=== PATIENT | female | born 1935 | race Hispanic/Latino ===

== ENCOUNTER 2016-11-08 10:51 | Emergency (ER) | payer MEDICARE ==
[2016-11-08 11:49] LABS: Basophils % (Auto) 0.5 % (0.0-1.8); Eosinophils % (Auto) 1.1 % (0.0-4.3); Mean Corpuscular HGB Conc 31 % (30-34); Mean Corpuscular Volume 78 fl (79-97); Platelet Count 230 K/mm3 (140-440); Red Blood Count 5.17 M/mm3 (3.65-5.03); Red Cell Distribution Width 19.5 % (13.2-15.2); White Blood Count 9.5 K/mm3 (4.5-11.0)
[2016-11-08 11:50] LABS: Hematocrit 40.5 % (30.3-42.9); Hemoglobin 12.5 gm/dl (10.1-14.3); Mean Corpuscular Hemoglobin 24 pg (28-32)
[2016-11-08 12:12] LABS: BUN/Creatinine Ratio 18.88; Calcium 9.6 mg/dL (8.4-10.2); Chloride 99.4 mmol/L (98-107); Potassium 4.8 mmol/L (3.6-5.0)
--- NOTE | 2016-11-08 12:23 | XRay Report ---
X-ray SOFT TISSUE NECK TWO VIEWS: 11/08/16 10:51:00 CLINICAL: Possible obstructing food bolus. FINDINGS: Normal airway and soft tissues. No foreign body identified. Status post anterior cervical fusion C5-C7. Normal appearance of the hardware. Large anterior osteophytes at C3-4 and C4-5. C4-5 disc space narrowing. The anterior osteophyte at C3-4 is sufficiently large to possibly impaired swallowing. IMPRESSION: No foreign body. Extensive degenerative change of the cervical spine status post anterior cervical fusion with anterior osteophytes at C3-4 which are sufficiently large to possibly impair swallowing.
[2016-11-08] MEDS ORDERED: ZOFRAN IV ONE (15:32)
--- NOTE | 2016-11-08 15:41 | Emergency Department Report ---
HPI - General Chief Complaint: Chest Pain Time Seen by Provider: 11/08/16 15:16 - HPI HPI: Room 18 The patient is an 81-year-old female presenting with a chief complaint of chest discomfort, inability to swallow food. The patient says she has had difficulty swallowing for 2 weeks. The patient states last night she ate pizza without difficulty however this morning when she attempted to drink coffee came right back up. The patient says she attempts to eat some chicken tenders but that also came back up. Patient states she is unable to tolerate anything by mouth. The patient complains of discomfort in the middle of the chest and states it feels similar to an episode she had 2 years ago when she required an EGD with dilation of her esophagus Location: Chest, gastrointestinal system Duration: Intermittent 2 weeks, see above Quality: Discomfort Severity: Moderate Modifying factors: [see above] Context: [see above] Mode of transportation: [not driving] ED Past Medical Hx - Past Medical History Hx Hypertension: Yes Hx Diabetes: Yes Hx GERD: Yes Hx Arthritis: Yes Hx Asthma: Yes Additional medical history: Degenerative joint disease , thyroid - Surgical History Additional Surgical History: ольга knee replacement/ left shoulder replacement. neck surgery. Partial hyster, , cataract, thyroid - Family History Family history: no significant - Social History Smoking Status: Never Smoker Substance Use Type: None - Medications Home Medications: Home Medications Medication Instructions Recorded Confirmed Last Taken Type Losartan/Hydrochlorothiazide 1 each PO QDAY 10/17/12 07/13/15 1 Day Ago History [Hyzaar 100-25] 1 Pravastatin (Nf) [Pravachol] 40 mg PO QHS 10/17/12 07/13/15 1 Day Ago History 4 metFORMIN [Glucophage] 500 mg PO BID 10/17/12 07/13/15 1 Day Ago History 40 Insulin NPH Hum/Reg Insulin Hm 45 units SC BID 03/07/14 07/13/15 1 Day Ago History [NovoLIN 70-30 100 Unit/ml Vial] 45 Levothyroxine [Synthroid] 50 mcg PO DAILY 03/07/14 07/13/15 1 Day Ago History 50 Carvedilol [Coreg] 6.25 mg PO BID 11/08/16 11/08/16 Unknown History Pantoprazole [Protonix] 40 mg PO QDAY #30 tablet 11/08/16 Unknown Rx ED Review of Systems ROS: Stated complaint: CHEST PAIN Other details as noted in HPI Comment: All other systems reviewed and negative Constitutional: denies: chills, fever Eyes: denies: eye pain, eye discharge, vision change ENT: denies: ear pain, throat pain Respiratory: denies: cough, shortness of breath, wheezing Cardiovascular: chest pain Endocrine: no symptoms reported Gastrointestinal: nausea, vomiting Genitourinary: denies: urgency, dysuria, discharge Musculoskeletal: denies: back pain, joint swelling, arthralgia Skin: denies: rash, lesions Neurological: denies: headache, weakness, paresthesias Psychiatric: denies: anxiety, depression Hematological/Lymphatic: denies: easy bleeding, easy bruising Physical Exam - Physical Exam Vital Signs: Vital Signs 11/08/16 11/08/16 11/08/16 11:21 14:23 14:30 Temperature 98.4 F Pulse Rate 86 63 70 Respiratory 20 19 12 Rate Blood Pressure 196/82 203/69 O2 Sat by Pulse 96 98 97 Oximetry 11/08/16 14:47 Temperature Pulse Rate Respiratory 16 Rate Blood Pressure O2 Sat by Pulse 98 Oximetry Physical Exam: GENERAL: The patient is well-developed well-nourished female sitting on stretcher holding an emesis bag not appearing to be in acute distress. [] HEENT: Normocephalic. Atraumatic. Extraocular motions are intact. Patient has moist mucous membranes. NECK: Supple. Trachea midline. There is no stridor CHEST/LUNGS: Clear to auscultation. There is no respiratory distress noted. HEART/CARDIOVASCULAR: Regular. There is no tachycardia. There is no gallop rub or murmur. ABDOMEN: Abdomen is soft, nontender. Patient has normal bowel sounds. There is no abdominal distention. SKIN: There is no rash. There is no diaphoresis. NEURO: The patient is awake, alert, and oriented. The patient is cooperative. The patient has normal speech MUSCULOSKELETAL: There is no evidence of acute injury. ED Course Vital Signs 11/08/16 11/08/16 11/08/16 11:21 14:23 14:30 Temperature 98.4 F Pulse Rate 86 63 70 Respiratory 20 19 12 Rate Blood Pressure 196/82 203/69 O2 Sat by Pulse 96 98 97 Oximetry 11/08/16 14:47 Temperature Pulse Rate Respiratory 16 Rate Blood Pressure O2 Sat by Pulse 98 Oximetry - Consultations Consultation #1: 11/08/16 15:[address] Hassan-recommends canceling esophagram and he will call [facility] for endoscopy ED Medical Decision Making - Lab Data Result diagrams: 11/08/16 11:35 11/08/16 11:35 Laboratory Tests 11/08/16 11/08/16 11/08/16 11:35 11:35 15:30 WBC 9.5 RBC 5.17 H Hgb 12.5 Hct 40.5 MCV 78 L MCH 24 L MCHC 31 RDW 19.5 H Plt Count 230 Lymph % (Auto) 29.8 [place] % (Auto) 4.9 Eos % (Auto) 1.1 Baso % (Auto) 0.5 Lymph # 2.8 [place] # 0.5 Eos # 0.1 Baso # 0.0 Seg Neutrophils % 63.7 Seg Neutrophils # 6.1 Sodium 137 Potassium 4.8 Chloride 99.4 Carbon Dioxide 23 Anion Gap 19 BUN 17 Creatinine 0.9 Estimated GFR 60 BUN/Creatinine Ratio 18.88 Glucose 224 H Calcium 9.6 Total Creatine Kinase 41 CK-MB (CK-2) 1.7 CK-MB (CK-2) Rel Index 4.1 H Troponin T < 0.010 - EKG Data -: EKG Interpreted by Me EKG shows normal: sinus rhythm Rate: normal - EKG Data When compared to previous EKG there are: no significant change Interpretation: unchanged when compared t (04/14/2014) - Radiology Data Radiology results: image reviewed (lateral soft tissue neck x-ray) interpreted by me: Lateral soft tissue neck x-ray-no prevertebral swelling, no foreign body seen - Differential Diagnosis food impaction, esophageal stricture, achalasia, esophageal web, ACS Critical care attestation.: If time is entered above; I have spent that time in minutes in the direct care of this critically ill patient, excluding procedure time. ED Disposition Clinical Impression: Dysphagia, Esophagitis determined by endoscopy Disposition: DC-01 TO HOME OR SELFCARE Is pt being admited?: No Does the pt Need Aspirin: No Condition: Stable Additional Instructions: Return to the emergency department immediately should you develop worsening symptoms, fever, inability to tolerate food or liquid or any other concerns. Prescriptions: Pantoprazole [Protonix] 40 mg PO QDAY #30 tablet Referrals: BOO PURCELL MD [Primary Care Provider] - 3-5 Days EDY HASSAN MD [Staff Physician] - 3-5 Days
[2016-11-08 15:48] LABS: Creatine Kinase MB 1.7 ng/mL (0.0-4.0)
[2016-11-08 15:49] LABS: Creatine Kinase 41 units/L (30-135)
[2016-11-08] MEDS ORDERED: NACL 0.9% 1000 ML 1,000 ML ONE (17:21)
[2016-11-08] MEDS ORDERED: WATER FOR IRRIG STERILE IR ONE (17:21)
--- NOTE | 2016-11-08 17:45 | Gastroenterology Consultation ---
History of Present Illness - Reason for Consult Consult date: 11/08/16 esophageal food impaction Requesting physician: FARSHAD GUTIÉRREZ - History of Present Illness The patient is an 81 year old female for whom consultation was requested for esophageal food impaction. She had been having mild dysphagia for a few weeks and became unable to swallow anything, including saliva after eating a meat particle. She has had heartburn for a few weeks as well. The patient denies weight loss or loss of appetite. Past History Past Medical History: arthritis, diabetes, hypertension Past Surgical History: total hip replacement, total knee replacement Social history: , lives with family. denies: smoking, alcohol abuse Family history: no significant family history Medications and Allergies Allergies Allergy/AdvReac Type Severity Reaction Status Date / Time Opioids - Morphine Analogues Allergy Vomiting Verified 07/13/15 16:35 tetanus immune globulin Allergy Rash Verified 07/13/15 16:35 tape Allergy Unknown Uncoded 07/13/15 16:35 Home Medications Medication Instructions Recorded Confirmed Last Taken Type Losartan/Hydrochlorothiazide 1 each PO QDAY 10/17/12 11/08/16 1 Day Ago History [Hyzaar 100-25] 1 Pravastatin (Nf) [Pravachol] 40 mg PO QHS 10/17/12 11/08/16 1 Day Ago History 4 metFORMIN [Glucophage] 1,000 mg PO BID 10/17/12 11/08/16 1 Day Ago History 40 Insulin NPH Hum/Reg Insulin Hm 45 units SC BID 03/07/14 11/08/16 1 Day Ago History [NovoLIN 70-30 100 Unit/ml Vial] 45 Levothyroxine [Synthroid] 50 mcg PO DAILY 03/07/14 11/08/16 1 Day Ago History 50 Carvedilol [Coreg] 6.25 mg PO BID 11/08/16 11/08/16 Unknown History Review of Systems - Review of Systems Constitutional: no weight loss, no weight gain Eyes: no change in vision, no pain Ears, Nose, Throat: difficulty swallowing, no decreased hearing, no epistaxis, no painful swallowing Breasts: deferred Cardiovascular: no chest pain, no shortness of breath, no syncope Respiratory: no cough, no shortness of breath, no wheezing Gastrointestinal: no abdominal pain, no nausea, no vomiting, no diarrhea, no change in bowel habits, no BRBPR, no melena Rectal: no pain Female Genitourinary: deferred Musculoskeletal: joint pain, no gait dysfunction Integumentary: no rash, no pruritis, no jaundice Neurological: no paralysis, no weakness, no parasthesias Psychiatric: no anxiety, no memory loss, no change in sleep habits, no change in appetite Endocrine: no cold intolerance, no heat intolerance Hematologic/Lymphatic: no easy bruising, no easy bleeding Allergic/Immunologic: no wheezing Exam - Constitutional Vital Signs: Temp Pulse Resp BP Pulse Ox 98.4 F 71 12 212/58 96 11/08/16 11:21 11/08/16 17:00 11/08/16 17:00 11/08/16 17:00 11/08/16 17:00 General appearance: no acute distress, well-nourished - EENT Eyes: PERRL ENT: hearing intact, clear oral mucosa, dentition normal - Neck Neck: supple, normal ROM, no masses or JVD - Respiratory Respiratory effort: normal Respiratory: bilateral: CTA - Breasts Breasts: deferred - Cardiovascular Rhythm: regular Heart Sounds: Present: S1 & S2. Absent: gallop, rub Extremities: pulses intact, No edema, normal color, Full ROM - Gastrointestinal General gastrointestinal: Present: soft, non-tender, non-distended, normal bowel sounds, other (umbilical hernia) Rectal Exam: deferred - Genitourinary Female Genitourinary: deferred - Integumentary Integumentary: Present: clear, warm, dry - Neurologic Neurological: alert and oriented x3 - Psychiatric Psychiatric: appropriate mood/affect, intact judgment & insight, memory intact - Labs CBC & Chem 7: 11/08/16 11:35 11/08/16 11:35 Lab Results: Laboratory Results - last 24 hr 11/08/16 11/08/16 11/08/16 11:35 11:35 15:30 WBC 9.5 RBC 5.17 H Hgb 12.5 Hct 40.5 MCV 78 L MCH 24 L MCHC 31 RDW 19.5 H Plt Count 230 Lymph % (Auto) 29.8 [place] % (Auto) 4.9 Eos % (Auto) 1.1 Baso % (Auto) 0.5 Lymph # 2.8 [place]p # 0.5 Eos # 0.1 Baso # 0.0 Seg Neutrophils % 63.7 Seg Neutrophils # 6.1 Sodium 137 Potassium 4.8 Chloride 99.4 Carbon Dioxide 23 Anion Gap 19 BUN 17 Creatinine 0.9 Estimated GFR 60 BUN/Creatinine Ratio 18.88 Glucose 224 H Calcium 9.6 Total Creatine Kinase 41 CK-MB (CK-2) 1.7 CK-MB (CK-2) Rel Index 4.1 H Troponin T < 0.010 Assessment and Plan - Patient Problems (1) Foreign body in esophagus Current Visit: Yes Status: Acute Qualifiers: Encounter type: E Plan to address problem: Will plan urgent endoscopy for removal of meat impaction. Details of endoscopy , purpose, risks, benefits and alternatives were discussed. Patient is in agreement. (2) Dysphagia Current Visit: Yes Status: Acute Qualifiers: Dysphagia type: D
[2016-11-08] MEDS ORDERED: DIPRIVAN 10 MG/ML IV ONE (17:51)
--- NOTE | 2016-11-08 17:55 | Anesthesia Day of Surgery ---
Anesthesia Day of Surgery - Day of Surgery Patient Examined: Yes Patient H&P Reviewed: Yes Patient is NPO: Yes Beta Blockers: No (unable to swallow pills)
--- NOTE | 2016-11-08 17:55 | Anesthesia Consultation ---
Anesthesia Consult and Med Hx Date of service: 11/08/16 - Airway Anesthetic Teeth Evaluation: Good ROM Head & Neck: Adequate Mental/Hyoid Distance: Adequate Mallampati Class: Class II Intubation Access Assessment: Probably Good - Pulmonary Exam CTA: Yes - Cardiac Exam Cardiac Exam: RRR - Pre-Operative Health Status ASA Pre-Surgery Classification: ASA3, Emergency Proposed Anesthetic Plan: MAC - Pulmonary Hx Smoking: No Hx Asthma: Yes COPD: No Hx Sleep Apnea: No - Cardiovascular System Hx Hypertension: Yes Hx Coronary Artery Disease: No (EF > 60%, negative stress in 10/2012) - Central Nervous System Hx Back Pain: Yes (neck pain, prior neck surgery) Hx Psychiatric Problems: No - Gastrointestinal Hx Gastroesophageal Reflux Disease: Yes - Endocrine Hx Insulin Dependent Diabetes: Yes Hx Thyroid Disease: Yes Hx Hypothyroidism: Yes - Hematic Hx Anemia: No - Other Systems Hx Cancer: No Hx Obesity: Yes
[2016-11-08] MEDS ORDERED: NORMODYNE IV PRN (17:57)
[2016-11-08] MEDS ORDERED: XYLOCAINE MPF 2% ONE (18:09)
--- NOTE | 2016-11-08 18:10 | Operative Report ---
Operative Report Operative Report: Date of procedure: 11/08/2016 Procedure: Esophagogastroduodenoscopy Preprocedure diagnosis: Food impaction Post procedure diagnosis: Severe distal esophagitis with resolved food impaction Endoscopist: Dr. Kilgore Anesthesia: Monitored anesthesia care per anesthesia department Medications: Propofol per anesthesia Estimated blood loss: 0 After careful discussion of the nature and purpose of the procedure as well as details the technique risks benefits and alternatives consent was obtained. The patient was placed in the left lateral decubitus position and medicated per anesthesia. The tip of the [employer] EQ 570 video scope was passed per orum under direct vision into the esophagus and advanced into the stomach and descending duodenum. There were a few flecks of old food present in the distal esophagus consistent with passage of a recent food bolus. The descending duodenum the duodenal bulb and pylorus were symmetrical and normal. The scope was withdrawn into the stomach and the stomach then gently insufflated with air. The antrum was normal. The stomach was further insufflated and the scope was then retroflexed and partially withdrawn. The cardia, fundus, and body of the stomach were within normal limits and easily distensible.The scope was then withdrawn in the forward position. The esophagogastric junction was at 38 cm. Severe inflammation and moderate ulceration was present in the distal 3 cm of the esophagus. The proximal esophageal body was normal. The procedure was was well tolerated and the patient was observed in recovery. Impressions: Distal esophagitis with resolution of food bolus impaction spontaneously. Likely has mild underlying stricture. Plan: Begin PPI therapy. Outpatient follow-up and endoscopy for dilation in the next month. The patient may be safely discharged from the emergency room. Electronically signed: Marco Antonio Kilgore MD
--- NOTE | 2016-11-08 18:41 | Post Anesthesia Evaluation ---
- Post Anesthesia Evaluation Patient Participated: Yes Airway Patent: Yes Stable Respiratory Function: Yes Nausea/Vomiting: No Temp > 96.8F: Yes Pain Manageable: Yes Adequeate Hydration: Yes Anesthesia Complications: No Block Receding Appropriately: Not Applicable Patient on Ventilator: No
[2016-11-08 19:30] VITALS: BP 172/78
== END 2016-11-08 19:06 | disposition home or self-care (01) ==
LOC: ED 10:51
DX: R07.89 Other chest pain (principal); R13.10 Dysphagia, unspecified; K20.9 Esophagitis, unspecified; I10 Essential (primary) hypertension; E11.9 Type 2 diabetes mellitus without complications; K21.9 Gastro-esophageal reflux disease without esophagitis; M19.90 Unspecified osteoarthritis, unspecified site; J45.909 Unspecified asthma, uncomplicated; Z79.4 Long term (current) use of insulin
CPT/HCPCS: 36415; 43237; 70360; 80048; 82550; 82553; 82962; 84484; 85025; 93005; 93010; 99284; J2704; J7030

== ENCOUNTER 2016-11-10 10:07 | Emergency (ER) | payer MEDICARE ==
--- NOTE | 2016-11-10 11:03 | Emergency Department Report ---
Chief Complaint: Medical Clearance Stated Complaint: FOOD WILL NOT GO DOWN Time Seen by Provider: 11/10/16 10:40 - HPI History of Present Illness: Patient here before that she is having an problem with swallowing her food. She states she was here recently and she just came from her doctor's office who called Dr. Kilgore office and Dr. Kilgore inform her to go to the emergency room and he will call and let them know that she is on away. Patient has history of arthritis, asthma, diabetes, GERD and hypertension. She has degenerative joint disease and thyroid disease. She has a history of bilateral knee replacement left shoulder replacement, neck surgery, partial hysterectomy, cataracts and thyroid surgery. Patient says she is recently had an EGD done and they found that she has spasms it was done by Dr. Kilgore and they could not complete the procedure because they're afraid that she would have a tear in her esophagus postprocedure. She is a diabetic and she is on metformin and fill her last blood sugar was at 150. She says she is having generalized pain 8 out of 10. Denies any chest pain or shortness of breath. - ROS Review of Systems: All systems are negative unless stated in HPI above - Exam Vital Signs: Vital Signs 11/10/16 10:39 Temperature 98 F Pulse Rate 82 Respiratory 20 Rate Blood Pressure 0/0 O2 Sat by Pulse 100 Oximetry There is aware that patient needs blood pressure taken Physical Exam: Gen.: This is a 81-year-old female well-nourished well-developed in no acute distress. Mouth: Oral airways patent, uvula is midline and no peritonsillar abscess or pharyngeal abnormality. Abdomen: Soft, nontender to palpate in all quadrants: Normal bowel sounds in all quadrants. MSE screening note: Focused history and physical exam performed. Due to findings the following was ordered:[facility] [place] ED Medical Decision Making - Medical Decision Making MDM: Patient screened by provider in triage area. Appropriate protocol initiated and patient to be seen in main ED by provider. I informed nurse in main ED the patient is in acute waiting area and Dr. Kilgore is supposed to be contact in for further details. ED Disposition for [facility] [place] Condition: Stable
[2016-11-10 12:27] LABS: Basophils % (Auto) 0.3 % (0.0-1.8); Eosinophils % (Auto) 1.6 % (0.0-4.3); Hematocrit 39.7 % (30.3-42.9); Hemoglobin 12.3 gm/dl (10.1-14.3); Mean Corpuscular HGB Conc 31 % (30-34); Mean Corpuscular Volume 77 fl (79-97); Platelet Count 217 K/mm3 (140-440); Red Blood Count 5.13 M/mm3 (3.65-5.03); Red Cell Distribution Width 18.7 % (13.2-15.2); White Blood Count 8.4 K/mm3 (4.5-11.0)
[2016-11-10 12:29] LABS: Alanine Aminotransferase 17 units/L (7-56); Albumin 3.6 g/dL (3.9-5); Albumin/Globulin Ratio 1.1 %; Alkaline Phosphatase 72 units/L (35-129); Anion Gap 17 mmol/L; BUN/Creatinine Ratio 19; Blood Urea Nitrogen 15 mg/dL (7-17); Calcium 9.7 mg/dL (8.4-10.2); Carbon Dioxide 25 mmol/L (22-30); Chloride 104.3 mmol/L (98-107); Glucose 135 mg/dL (65-100); Potassium 4.7 mmol/L (3.6-5.0); Sodium 142 mmol/L (137-145); Total Protein 6.9 g/dL (6.3-8.2)
[2016-11-10 12:38] LABS: INR 1.01 (0.87-1.13)
[2016-11-10 12:39] LABS: Partial Thromboplastin Time 28.6 Sec. (24.2-36.6)
[2016-11-10 12:40] LABS: Mean Corpuscular Hemoglobin 24 pg (28-32)
[2016-11-10 12:50] VITALS: BP 174/82
--- NOTE | 2016-11-10 12:56 | Emergency Department Report ---
ED General Adult HPI - General Chief complaint: Medical Clearance Stated complaint: FOOD WILL NOT GO DOWN Time Seen by Provider: 11/10/16 10:55 Source: patient, RN notes reviewed, old records reviewed Mode of arrival: Ambulatory Limitations: No Limitations - History of Present Illness Initial comments: This is an 81-year-old female who was previously unknown to this provider. Has a past medical history of severe esophagitis, with resolved food impaction boluses. Also has past medical history of hypertension, high cholesterol, diabetes. The patient presents to the ER with a sensation of recurrent inability to swallow. This started this morning. It is constant. It hurts her to swallow. No other complaints at this time. She reports this feels identical to her prior presentation on 11/08/2016. At that time, she had an upper endoscopy, which demonstrated "distal esophagitis with resolution of food bolus impaction spontaneously. Likely has underlying stricture." Gastroenterology recommended empiric proton pump inhibitor therapy, outpatient follow-up and endoscopy for dilatation in the next month. -: Gradual Consistency: constant Improves with: rest Worsens with: eating Associated Symptoms: loss of appetite, malaise. denies: confusion, cough, diaphoresis, fever/chills, headaches, rash, seizure, shortness of breath, syncope, weakness - Related Data Home Medications Medication Instructions Recorded Confirmed Last Taken Losartan/Hydrochlorothiazide 1 each PO QDAY 10/17/12 11/08/16 1 Day Ago [Hyzaar 100-25] 1 Pravastatin (Nf) [Pravachol] 40 mg PO QHS 10/17/12 11/08/16 1 Day Ago 4 metFORMIN [Glucophage] 1,000 mg PO BID 10/17/12 11/08/16 1 Day Ago 40 Insulin NPH Hum/Reg Insulin Hm 45 units SC BID 03/07/14 11/08/16 1 Day Ago [NovoLIN 70-30 100 Unit/ml Vial] 45 Levothyroxine [Synthroid] 50 mcg PO DAILY 03/07/14 11/08/16 1 Day Ago 50 Carvedilol [Coreg] 6.25 mg PO BID 11/08/16 11/08/16 Unknown Previous Rx's Medication Instructions Recorded Last Taken Type Pantoprazole [Protonix] 40 mg PO QDAY #30 tablet 11/08/16 Unknown Rx Ondansetron [Zofran Odt] 4 mg PO Q6HR PRN #20 tab.rapdis 11/10/16 Unknown Rx Allergies Allergy/AdvReac Type Severity Reaction Status Date / Time Opioids - Morphine Analogues Allergy Vomiting Verified 07/13/15 16:35 tetanus immune globulin Allergy Rash Verified 07/13/15 16:35 tape Allergy Unknown Uncoded 07/13/15 16:35 ED Review of Systems ROS: Stated complaint: FOOD WILL NOT GO DOWN Other details as noted in HPI Constitutional: denies: fever Eyes: denies: eye discharge ENT: denies: epistaxis Respiratory: denies: cough Cardiovascular: denies: chest pain Gastrointestinal: as per HPI Genitourinary: as per HPI Musculoskeletal: as per HPI Skin: as per HPI Neurological: as per HPI Psychiatric: as per HPI Hematological/Lymphatic: as per HPI ED Past Medical Hx - Past Medical History Hx Hypertension: Yes Hx Diabetes: Yes Hx GERD: Yes Hx Arthritis: Yes Hx Asthma: Yes Hx COPD: No Hx Tuberculosis: No Hx HIV: No Additional medical history: Degenerative joint disease , thyroid - Surgical History Additional Surgical History: ольга knee replacement/ left shoulder replacement. neck surgery. Partial hyster, , cataract, thyroid - Social History Smoking Status: Never Smoker Substance Use Type: None - Medications Home Medications: Home Medications Medication Instructions Recorded Confirmed Last Taken Type Losartan/Hydrochlorothiazide 1 each PO QDAY 10/17/12 11/08/16 1 Day Ago History [Hyzaar 100-25] 1 Pravastatin (Nf) [Pravachol] 40 mg PO QHS 10/17/12 11/08/16 1 Day Ago History 4 metFORMIN [Glucophage] 1,000 mg PO BID 10/17/12 11/08/16 1 Day Ago History 40 Insulin NPH Hum/Reg Insulin Hm 45 units SC BID 03/07/14 11/08/16 1 Day Ago History [NovoLIN 70-30 100 Unit/ml Vial] 45 Levothyroxine [Synthroid] 50 mcg PO DAILY 03/07/14 11/08/16 1 Day Ago History 50 Carvedilol [Coreg] 6.25 mg PO BID 11/08/16 11/08/16 Unknown History Pantoprazole [Protonix] 40 mg PO QDAY #30 tablet 11/08/16 Unknown Rx Ondansetron [Zofran Odt] 4 mg PO Q6HR PRN #20 tab.rapdis 11/10/16 Unknown Rx ED Physical Exam - General Limitations: No Limitations General appearance: alert, in no apparent distress - Head Head exam: Present: atraumatic, normocephalic - Eye Eye exam: Present: normal appearance, EOMI. Absent: nystagmus - ENT ENT exam: Present: normal exam, normal orophraynx, mucous membranes moist, normal external ear exam - Neck Neck exam: Present: normal inspection, full ROM. Absent: tenderness, meningismus - Respiratory Respiratory exam: Present: normal lung sounds bilaterally. Absent: respiratory distress, wheezes, rales, rhonchi, stridor, chest wall tenderness, accessory muscle use, decreased breath sounds, prolonged expiratory - Cardiovascular Cardiovascular Exam: Present: regular rate, normal rhythm, normal heart sounds. Absent: bradycardia, tachycardia, irregular rhythm, systolic murmur, diastolic murmur, rubs, gallop - GI/Abdominal GI/Abdominal exam: Present: soft, normal bowel sounds. Absent: distended, tenderness, guarding, rebound, rigid, pulsatile mass - Extremities Exam Extremities exam: Present: normal inspection, full ROM, normal capillary refill , other (upper extremity ecchymosis. 2+ pulses noted in the bilateral upper extremities). Absent: pedal edema, joint swelling, calf tenderness - Back Exam Back exam: Present: normal inspection, full ROM. Absent: tenderness, CVA tenderness (R), CVA tenderness (L), muscle spasm, paraspinal tenderness, vertebral tenderness - Neurological Exam Neurological exam: Present: alert, oriented X3, other (Extraocular movements intact. Tongue midline. No facial droop. Facial sensation intact to light touch in the V1, V2, V3 distribution bilaterally. 5 and 5 strength in 4 extremities.. Sensation is intact to light touch in 4 extremities.). Absent: motor sensory deficit - Psychiatric Psychiatric exam: Present: anxious - Skin Skin exam: Present: warm, dry, intact, normal color. Absent: rash ED Course Vital Signs 11/10/16 11/10/16 11/10/16 10:39 11:36 12:45 Temperature 98 F Pulse Rate 82 Respiratory 20 Rate Blood Pressure 0/0 174/82 Blood Pressure 180/77 [Left] O2 Sat by Pulse 100 Oximetry 11/10/16 11/10/16 12:46 12:48 Temperature Pulse Rate Respiratory Rate Blood Pressure 174/82 174/82 Blood Pressure [Left] O2 Sat by Pulse 100 99 Oximetry - Reevaluation(s) Reevaluation #1: 11/10/16 13:27 Differential diagnosis: Esophageal obstruction, impaction, esophagitis, GERD/ reflux Assessment and plan: 81-year-old female with recurrent dysphagia, recently had upper endoscopy, patient endorses that she was able to swallow without difficulty up until this morning. Discussed with her biochemical engineer, Dr. Hassan, he requests a barium swallow at this time. Reevaluation #2: 11/10/16 15:31 The barium swallow demonstrates intermittent dilatation/stricture, especially when patient is in the supine position. The patient was able to tolerate the liquids without vomiting. Case is discussed with her biochemical engineer, Dr. Hassan. He recommends clear liquid diet, proton pump inhibitor, follow up next week. This is discussed with the patient. She verbalizes understanding. Return precautions are reviewed. ED Medical Decision Making - Lab Data Result diagrams: 11/10/16 11:55 11/10/16 11:55 Vital Signs 11/10/16 11/10/16 11/10/16 10:39 11:36 12:45 Temperature 98 F Pulse Rate 82 Respiratory 20 Rate Blood Pressure 0/0 174/82 Blood Pressure 180/77 [Left] O2 Sat by Pulse 100 Oximetry 11/10/16 11/10/16 12:46 12:48 Temperature Pulse Rate Respiratory Rate Blood Pressure 174/82 174/82 Blood Pressure [Left] O2 Sat by Pulse 100 99 Oximetry Lab Results 11/10/16 11/10/16 11/10/16 Range/Units 11:55 11:55 11:55 WBC 8.4 (4.5-11.0) K/mm3 RBC 5.13 H (3.65-5.03) M/mm3 Hgb 12.3 (10.1-14.3) gm/dl Hct 39.7 (30.3-42.9) % MCV 77 L (79-97) fl MCH 24 L (28-32) pg MCHC 31 (30-34) % RDW 18.7 H (13.2-15.2) % Plt Count 217 (140-440) K/mm3 Lymph % (Auto) 34.5 (13.4-35.0) % [place] % (Auto) 5.7 (0.0-7.3) % Eos % (Auto) 1.6 (0.0-4.3) % Baso % (Auto) 0.3 (0.0-1.8) % Lymph # 2.9 (1.2-5.4) K/mm3 [place] # 0.5 (0.0-0.8) K/mm3 Eos # 0.1 (0.0-0.4) K/mm3 Baso # 0.0 (0.0-0.1) K/mm3 Seg Neutrophils % 57.9 (40.0-70.0) % Seg Neutrophils # 4.9 (1.8-7.7) K/mm3 PT 13.8 (12.2-14.9) Sec. INR 1.01 (0.87-1.13) APTT 28.6 (24.2-36.6) Sec. Chloride 104.3 (98-107) mmol/L Carbon Dioxide 25 (22-30) mmol/L Anion Gap 17 mmol/L BUN 15 (7-17) mg/dL Creatinine 0.8 (0.7-1.2) mg/dL Estimated GFR > 60 ml/min BUN/Creatinine Ratio 19 % Glucose 135 H (65-100) mg/dL Calcium 9.7 (8.4-10.2) mg/dL Total Bilirubin 0.40 (0.1-1.2) mg/dL AST 21 (5-40) units/L ALT 17 (7-56) units/L Alkaline Phosphatase 72 (35-129) units/L Total Protein 6.9 (6.3-8.2) g/dL Albumin 3.6 L (3.9-5) g/dL Albumin/Globulin Ratio 1.1 % Critical care attestation.: If time is entered above; I have spent that time in minutes in the direct care of this critically ill patient, excluding procedure time. ED Disposition Clinical Impression: Dysphagia Disposition: DC-01 TO HOME OR SELFCARE Is pt being admited?: No Does the pt Need Aspirin: No Condition: Stable Instructions: Chronic Dysphagia (ED) Additional Instructions: Take the nausea medication as needed/directed. Adhere to clear liquid diet, consume shakes such as boost and ensure. Take outpatient Protonix which was prescribed for you on the previous visit. Follow up with gastroenterology next week. Return to the ER right away with fevers, chills, lethargy, irritability, projectile vomiting, change in mental status, inability to tolerate liquid feeds , confusion. Referrals: PRIMARY CARE, [Primary Care Provider] - 3-5 Days EDY HASSAN MD [Staff Physician] - 3-5 Days
[2016-11-10] MEDS ORDERED: ZOFRAN IV ONE (13:07)
[2016-11-10] MEDS ORDERED: PEPCID IV ONE (13:10)
[2016-11-10] MEDS ORDERED: ZOFRAN ODT PO ONE (13:54)
--- NOTE | 2016-11-10 14:34 | XRay Report ---
Single view chest: History: 39 And, dysphagia. Findings: Cardiomegaly. Trachea is midline. No consolidation, pneumothorax or pleural effusion. Impression: Cardiomegaly. No acute lung changes.
--- NOTE | 2016-11-10 15:23 | Fluoroscopy Report ---
Barium swallow: History: Dysphagia. Findings: Transit of barium through the cervical and thoracic esophagus appears unremarkable without obstruction in upright and prone oblique position. In supine position there is marked spasm/stricture noted at the distal esophagus causing marked delay in emptying with dilatation of the proximal esophagus with reflux extending to the cervical esophagus. No ulceration. In several images there is also noted intermittent narrowing of the cervical esophagus from the cricopharyngeus muscle at the level of the fusion. Impression: Findings as detailed above.
== END 2016-11-10 16:17 | disposition home or self-care (01) ==
LOC: ED 10:07
DX: R13.10 Dysphagia, unspecified (principal); E11.9 Type 2 diabetes mellitus without complications; K21.9 Gastro-esophageal reflux disease without esophagitis; M19.90 Unspecified osteoarthritis, unspecified site; J45.909 Unspecified asthma, uncomplicated; Z88.8 Allergy status to other drugs, medicaments and biological substances
CPT/HCPCS: 36415; 71010; 74220; 80053; 85025; 85610; 85730; Q0162